=== PATIENT | male | born 1990 | race Caucasian/White ===

== ENCOUNTER 2023-12-04 10:34 | Emergency (ER) | payer OTHER, SELFPAY ==
[2023-12-04 10:42] VITALS: BP 157/82; PULSE 68; RESP 18; TEMP 37.4; O2SAT 100
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
== END 2023-12-04 11:07 | disposition home or self-care (01) ==
PROVIDERS: Emergency Provider Registered Nurse
DX: S05.02XA Injury of conjunctiva and corneal abrasion without foreign body, left eye, initial encounter (principal); W50.0XXA Accidental hit or strike by another person, initial encounter; Y93.83 Activity, rough housing and horseplay
CPT/HCPCS: 99213; A9270; G0463